=== PATIENT | female | born 1950 | race Caucasian/White ===

== ENCOUNTER → 2020-07-22 | Outpatient (CLI) | payer OTHER | LOC: OPSV 13:23 | DX: M86.171 Other acute osteomyelitis, right ankle and foot (principal); L97.519 Non-pressure chronic ulcer of other part of right foot with unspecified severity | CPT/HCPCS: G0463 ==

== ENCOUNTER → 2020-07-23 | Outpatient (CLI) | payer OTHER, SELFPAY ==
[~2020-07-23] VITALS: Ht 172.7 cm; Wt 83.9 kg
[2020-07-23 09:54] LABS: HEMOGLOBIN 12.5 gm/dl (12.3-15.3); RED BLOOD COUNT 4.24 M/UL (4.00-5.10); WHITE BLOOD COUNT 5.5 K/UL (4.5-11.0)
[2020-07-23 10:14] LABS: BUN/CREATININE RATIO 23 (0-10)
== END ==
LOC: OPSV 07:28
PROVIDERS: Internal Medicine Infectious Disease
DX: M86.9 Osteomyelitis, unspecified (principal)
CPT/HCPCS: 80053; 85025; 86140; 96365; J1335